=== PATIENT | female | born 1980 | race Caucasian/White ===

== ENCOUNTER 2020-10-22 11:58 | Emergency (ER) | payer OTHER ==
[2020-10-22 14:16] VITALS: BP 111/70; PULSE 64
== END 2020-10-22 12:21 | disposition left against medical advice (07) ==
LOC: FB.ED 11:58
DX: Z53.21 Procedure and treatment not carried out due to patient leaving prior to being seen by health care provider (principal)

== ENCOUNTER 2021-10-29 13:00 | Emergency (ER) | payer BC, OTHER ==
[2021-10-29] MEDS ORDERED: Sodium Chloride 0.9% 10 ML Syringe FLUSH PRN (13:13)
[2021-10-29] MEDS ORDERED: Adenosine 6 MG/2 ML SDV IVPUSH ONE (13:18)
[2021-10-29 13:42] VITALS: BP 145/88; PULSE 140
[2021-10-29] MEDS ORDERED: LORazepam 0.5 MG Tab PO ONE (13:44)
== END 2021-10-29 15:05 | disposition home or self-care (01) ==
LOC: FB.ED 13:00
DX: I47.1 Supraventricular tachycardia (principal)
CPT/HCPCS: 36415; 80048; 84484; 93005; 96374; 99285-25; J0153

== ENCOUNTER 2023-01-24 08:12 | Emergency (ER) | payer BC ==
[2023-01-24] MEDS: Sodium Chloride 0.9% 10 ML Syringe FLUSH PRN ×3 (08:25→08:42)
[2023-01-24] MEDS ORDERED: Adenosine 6 MG/2 ML SDV IVPUSH ONE (08:40)
[2023-01-24 09:01] LABS: BASOPHILS PERCENT AUTO 0.8 % (0.2-1.5); BLOOD UREA NITROGEN,BUN 12 mg/dL (7-18); BUN/CREATININE RATIO 17.1 (9-20); CALCIUM 9.4 mg/dL (8.6-10.2); CARBON DIOXIDE,CO2 23 mmol/L (21-32); CHLORIDE,CL 101 mmol/L (100-110); CREATININE 0.7 mg/dL (0.55-1.02); EOSINOPHILS ABSOLUTE AUTO 0.2 x10-3/uL (0.0-0.8); EOSINOPHILS PERCENT AUTO 2.5 % (0.6-8.1); ESTIMATED GFR 111 mL/min (>60); GLUCOSE RANDOM 160 mg/dL (80-116); HEMOGLOBIN 14.1 g/dL (11.4-15.5); LYMPHOCYTES ABSOLUTE AUTO 1.8 x10-3/uL (1.0-4.4); LYMPHOCYTES PERCENT AUTO 28.5 % (18.4-52.1); MEAN CORPUSCULAR HEMOGLOBIN 30.4 pg (23.9-33.9); MEAN CORPUSCULAR HGB CONC 33.5 g/dL (31.9-34.8); MEAN CORPUSCULAR VOLUME 90.7 fL (76.7-100.5); MEAN PLATELET VOLUME 7.7 fL (7.1-12.4); MONOCYTES ABSOLUTE AUTO 0.8 x10-3/uL (0.3-1.0); MONOCYTES PERCENT AUTO 12.1 % (4.4-15.7); NEUTROPHILS ABSOLUTE AUTO 3.5 x10-3/uL (1.5-6.3); NEUTROPHILS PERCENT AUTO 56.1 % (30.8-76.2); PLATELET COUNT,PLT 249 x10(3)uL (151-488); POTASSIUM,K 3.4 mmol/L (3.5-5.3); RED BLOOD CELL COUNT 4.64 x10(6)uL (3.60-5.20); RED CELL DISTRIBUTION WIDTH 12.8 % (12.3-16.5); SODIUM,NA 136 mmol/L (135-145); WHITE BLOOD CELL COUNT,WBC 6.2 x10-3/uL (3.0-10.3)
[2023-01-24 09:07] LABS: A/G RATIO 1.3; ALANINE AMINOTRANSFERASE,ALT 18 U/L (12-36); ALBUMIN 4.4 g/dL (3.5-5.2); ALKALINE PHOSPHATASE 53 IU/L (56-112); ASPARTATE AMNIOTRANSFERASE,AST 20 IU/L (5-25); BILIRUBIN TOTAL 0.8 mg/dL (0.1-1.3); PROTEIN TOTAL,TP 7.9 g/dL (6.0-8.0)
[2023-01-24] MEDS ORDERED: Adenosine 6 MG/2 ML SDV ONE (11:50)
[2023-01-24 13:43] VITALS: BP 157/84; PULSE 143
== END 2023-01-24 10:08 | disposition home or self-care (01) ==
LOC: FB.ED 08:12
DX: I47.1 Supraventricular tachycardia (principal); E87.6 Hypokalemia; Z86.16 Personal history of COVID-19
CPT/HCPCS: 36415; 80053; 84484; 85025; 93005; 96374; 99285; J0153; J3490